=== PATIENT | female | born 1990 | race African-American/Black ===

== ENCOUNTER 2019-01-23 10:31 | Emergency (ER) | payer OTHER ==
[~2019-01-23] VITALS: Ht 162.6 cm; Wt 72.6 kg
== END 2019-01-23 11:13 | disposition home or self-care (01) ==
LOC: FSED 10:31
DX: R20.2 Paresthesia of skin (principal); S54.01XA Injury of ulnar nerve at forearm level, right arm, initial encounter; Y99.0 Civilian activity done for income or pay
CPT/HCPCS: 99282

== ENCOUNTER 2019-09-06 00:16 | Emergency (ER) | payer OTHER ==
[~2019-09-06] VITALS: Ht 162.6 cm; Wt 77.1 kg
[2019-09-06 01:29] LABS: CLARITY,URINE CLEAR (CLEAR); COLOR,URINE YELLOW (YELLOW); PREGNANCY TEST, URINE NEGATIVE (NEGATIVE)
[2019-09-06 01:30] LABS: BILIRUBIN,URINE NEGATIVE (NEGATIVE); KETONES,URINE NEGATIVE (NEGATIVE); LEUKOCYTE ESTERASE ,URINE TRACE (NEGATIVE); NITRITE,URINE NEGATIVE (NEGATIVE); PROTEIN,URINE DIPSTICK NEGATIVE (NEGATIVE); URINE UROBILINOGEN 0.2 mg/dL (0.2 - 1)
[2019-09-06 01:46] LABS: BACTERIA,URINE RARE /HPF; EPITHELIAL CELLS,URINE RARE /LPF; RBC,URINE 0-5 /HPF (0-5); WBC,URINE (MAN) 0-5 /HPF (0-5)
[2019-09-06 01:51] VITALS: BP 143/96
== END 2019-09-06 02:00 | disposition home or self-care (01) ==
LOC: ER 00:16
DX: B37.3 Candidiasis of vulva and vagina (principal); J45.909 Unspecified asthma, uncomplicated
CPT/HCPCS: 81001; 81025; 99282